=== PATIENT | male | born 1945 | race Caucasian/White ===

== ENCOUNTER 2017-08-16 09:49 | Day surgery (SDC) | payer OTHER ==
[~2017-08-16] VITALS: Ht 180.3 cm; Wt 95.9 kg
[~2017-08-16 09:49] MED LIST: ACYC200 PO; ASPI325 PO; Advil200 M1 PO; Aspirin EC81 MG PO; CHOL10002 PO; Cleocin HCl300 MG PO; Lopressor 25 mg25 MG; METO25ER PO; Norco 5-325 Ta1 EACH PO; PROBIOTIC; Synthroid25 MCG PO; VANCOMYCIN1.25 GM/25 IV
[2017-08-16] MEDS ORDERED: LOSA25 (10:49)
== END 2017-08-16 12:18 | disposition home or self-care (01) ==
LOC: ORSCSDS 09:49
PROVIDERS: Surgery
PROC: 0DJD8ZZ Inspection of Lower Intestinal Tract, Via Natural or Artificial Opening Endoscopic (ICD-10-PCS; principal; 2017-08-16 11:00)
DX: Z12.11 Encounter for screening for malignant neoplasm of colon (principal); Z86.010 Personal history of colon polyps; R00.2 Palpitations; E78.5 Hyperlipidemia, unspecified; I10 Essential (primary) hypertension; I73.9 Peripheral vascular disease, unspecified; Z87.891 Personal history of nicotine dependence; E66.9 Obesity, unspecified; Z68.30 Body mass index [BMI] 30.0-30.9, adult; Z79.82 Long term (current) use of aspirin; Z79.899 Other long term (current) drug therapy
CPT/HCPCS: J7120

== ENCOUNTER → 2019-05-06 | Outpatient (CLI) | payer OTHER ==
[~2019-05-06] MED LIST changes: +LOSA25
== END | disposition home or self-care (01) ==
LOC: LAB SHORT 08:52 → PLD 08:52
DX: C03.1 Malignant neoplasm of lower gum (principal); K13.21 Leukoplakia of oral mucosa, including tongue; K14.8 Other diseases of tongue
CPT/HCPCS: 88305

== ENCOUNTER → 2020-06-23 | Outpatient (CLI) | payer OTHER ==
[~2020-06-23] MED LIST changes: +LIVALO2 MG PO
== END | disposition home or self-care (01) ==
LOC: LAB 08:23 → LAB SHORT 08:23
DX: D48.9 Neoplasm of uncertain behavior, unspecified (principal); L57.0 Actinic keratosis
CPT/HCPCS: 88305

== ENCOUNTER 2021-03-09 08:42 | Day surgery (SDC) | payer OTHER ==
[~2021-03-09] VITALS: Ht 180.3 cm; Wt 89.7 kg
== END 2021-03-09 12:43 | disposition home or self-care (01) ==
LOC: ORSCSDS 08:42
PROVIDERS: Otolaryngology
PROC: 0WB3XZX Excision of Oral Cavity and Throat, External Approach, Diagnostic (ICD-10-PCS; principal; 2021-03-09 11:00)
DX: K13.21 Leukoplakia of oral mucosa, including tongue (principal); I10 Essential (primary) hypertension; I25.2 Old myocardial infarction; G47.33 Obstructive sleep apnea (adult) (pediatric); E03.9 Hypothyroidism, unspecified; Z79.899 Other long term (current) drug therapy; Z79.82 Long term (current) use of aspirin
CPT/HCPCS: 88305; J1100; J2250; J2405; J2704; J3010; J7120

== ENCOUNTER 2021-10-24 08:25 | Day surgery (SDC) | payer OTHER ==
[~2021-10-24] VITALS: Ht 177.8 cm; Wt 91.9 kg
--- NOTE | 2021-10-24 11:43 | NUR ---
10/24/21 1143 KRYSTA HERNANDEZ CHECKED OPERATIVE SITE, REDDISH PINK AREA UNDER LIP, NO ACTIVE BLEEDING OR PAIN NOTED
== END 2021-10-24 12:15 | disposition home or self-care (01) ==
LOC: ORSCSDS 08:25
PROVIDERS: Otolaryngology
PROC: 0C5 Mouth and Throat, Destruction (ICD-10-PCS; principal; 2021-10-24 10:30)
PROC: 0C5 Mouth and Throat, Destruction (ICD-10-PCS; principal; 2021-10-24 10:30)
DX: K13.21 Leukoplakia of oral mucosa, including tongue (principal); I10 Essential (primary) hypertension; Z87.891 Personal history of nicotine dependence; E03.9 Hypothyroidism, unspecified; Z79.899 Other long term (current) drug therapy; Z79.82 Long term (current) use of aspirin
CPT/HCPCS: J0171; J1100; J2250; J2405; J2704; J3010; J7120

== ENCOUNTER 2023-02-05 18:54 | Inpatient (IN) | payer OTHER ==
[~2023-02-05] VITALS: Ht 180.3 cm; Wt 83.7 kg
[2023-02-05 22:00] LABS: BASOPHILS ABSOLUTE AUTO 0.04 K/mm3 (0.00-0.23); BASOPHILS PERCENT AUTO 0 % (0-2); EOSINOPHILS ABSOLUTE AUTO 0.27 K/mm3 (0.00-0.68); EOSINOPHILS PERCENT AUTO 2 % (0-6); Hematocrit 34.7 % (37.0-53.0); Hemoglobin 11.5 g/dL (13.5-17.5); IMMATURE GRAN ABSOLUTE AUTO 0.06 K/mm3 (0.00-0.10); IMMATURE GRAN PERCENT AUTO 0 % (0-1); LYMPHOCYTES ABSOLUTE AUTO 2.34 K/mm3 (0.84-5.20); LYMPHOCYTES PERCENT AUTO 18 % (21-46); MONOCYTES ABSOLUTE AUTO 1.29 K/mm3 (0.16-1.47); MONOCYTES PERCENT AUTO 10 % (4-13); Mean Corpuscular HGB 31.6 pg (26.0-34.0); Mean Corpuscular HGB Conc 33.1 g/dL (31.5-36.5); Mean Corpuscular Volume 95 fL (80-100); Mean Platelet Volume 9.9 fL (9.1-12.4); NEUTROPHILS ABSOLUTE AUTO 9.36 K/mm3 (1.96-9.15); NEUTROPHILS PERCENT AUTO 70 % (41-73); Platelet Count 248 K/mm3 (150-400); RDW Coefficient Variation 13.9 % (11.7-14.2); RDW Standard Deviation 48.9 fL (35.1-46.3); Red Blood Cell Count 3.64 M/mm3 (4.30-5.90); White Blood Cell Count 13.36 K/mm3 (4.00-11.30)
[2023-02-05 22:17] LABS: International Normalized Ratio 1.14; Prothrombin Time Results 11.9 Sec (9.7-11.5)
[2023-02-05 22:24] LABS: Bun/Creatinine Ratio 32.3 (12.0-20.0); Calcium, Blood 9.6 mg/dL (8.5-10.1); Creatinine, Blood 0.96 mg/dL (0.60-1.20); Potassium, Blood 3.9 mmol/L (3.5-5.5)
[2023-02-05 22:35] LABS: Anti-Xa UFH, PHA Monitoring <0.10 IU/mL
[2023-02-06] VITALS (10 sets, daily range): BP systolic 109–143; BP diastolic 63–104
[2023-02-06] MEDS ORDERED: ASPI81CH PO (00:19)
[2023-02-06] MEDS ORDERED: ATOR40TA PO (00:19)
--- NOTE | 2023-02-06 05:52 | NUR ---
SHIFT SUMMARY/ARRIVAL TO PCU NOTE: RECEIVED REPORT FROM PRODUCT SAFETY TECHNICIAN ZORAN ARCOS, PT SHORTLY ARIRVED TO PCU 2 ~0125 THIS AM. SLIDE FROM ER KRISTINA TO PCU BED VIA SLIDE SHEET, HEPARIN gtt STARTED IN ED AND RUNNING WHEN PT ARRIVED WITH HIS SPOUSE. A/Ox4 AND COOPERATIVE WITH CARE. ANSWERS QUESTIONS APPROPRIATELY AND ABLE TO MAKE HIS NEEDS KNOWN. VERY CHITINA W/O HIS HEARING AIDES, BUT ABLE TO READ LIPS WELL. CARDIAC, TELEMETRY DEMONSTRATES SR-ST 80-100'S C/O UPPER CP WITH DEEP INHALATION. SBP REMAINS STABLE RANGING 120-130'S. RESPIRATORY, MAINTAINS SPO2 >92% ON RA, REPORTS SOB WITH EXERTION, DRY INTERMITTENT COUGH NOTED. LS VERY DIMINISHED T/O. GI,, ABLE TO INDPENDENTLY USE URINAL AT BEDSIDE. WALKS WITH CANE AT BASELINE, BUT RECENTLY REPORTS ISSUES WITH GAIT DUE TO RLE SWELLING/PAIN. RLE SWOLLEN, RED, AND WARM TO THE TOUCH. PEDAL PULSES PRESENT BILAT. DR. DAMON CONSULTED THIS MORNING FOR POSSIBLE PROCEDURE. HEPARIN gtt HAS BEEN RUNNING ORDERED VIA EMAR. REPORTS MINIMAL DULL PAIN ON RLE. ASSESSED PT FOR RISKS OF ANY IGNITION SOURCES WELL BEHAVIORS FOR INCREASED RISKS OF FIRE DANGER. PT EDUCATED ON COMMON SOURCES OF IGNITION WELL NEED TO KEEP A SAFE ENVIRONMENT. PT VOICED UNDERSTANDING. NO NEW ORDERS AT THIS TIME, WILL REPORT TO ONCOMING RN. YONIS YATES OF THIS NOTE.
[2023-02-06] MEDS ORDERED: METO25 PO (08:45)
[2023-02-06 10:11] LABS: Albumin, Blood 2.8 g/dL (3.4-5.0); Albumin/Globulin Ratio 0.7 (0.8-1.8); Bilirubin, Total 0.7 mg/dL (0.1-1.0); Bun/Creatinine Ratio 27.1 (12.0-20.0); Calcium, Blood 8.9 mg/dL (8.5-10.1); Globulin, Blood 4.3 g/dL (2.2-4.0); Potassium, Blood 3.7 mmol/L (3.5-5.5); Total Protein, Blood 7.1 g/dL (6.4-8.2)
[2023-02-06 10:34] LABS: BASOPHILS ABSOLUTE AUTO 0.03 K/mm3 (0.00-0.23); BASOPHILS PERCENT AUTO 0 % (0-2); EOSINOPHILS ABSOLUTE AUTO 0.14 K/mm3 (0.00-0.68); EOSINOPHILS PERCENT AUTO 2 % (0-6); Hematocrit 30.7 % (37.0-53.0); Hemoglobin 10.2 g/dL (13.5-17.5); IMMATURE GRAN ABSOLUTE AUTO 0.07 K/mm3 (0.00-0.10); IMMATURE GRAN PERCENT AUTO 1 % (0-1); LYMPHOCYTES ABSOLUTE AUTO 1.09 K/mm3 (0.84-5.20); LYMPHOCYTES PERCENT AUTO 11 % (21-46); MONOCYTES ABSOLUTE AUTO 0.76 K/mm3 (0.16-1.47); MONOCYTES PERCENT AUTO 8 % (4-13); Mean Corpuscular HGB 31.4 pg (26.0-34.0); Mean Corpuscular HGB Conc 33.2 g/dL (31.5-36.5); Mean Corpuscular Volume 95 fL (80-100); Mean Platelet Volume 10.4 fL (9.1-12.4); NEUTROPHILS ABSOLUTE AUTO 7.47 K/mm3 (1.96-9.15); NEUTROPHILS PERCENT AUTO 78 % (41-73); Platelet Count 85 K/mm3 (150-400); RDW Coefficient Variation 13.7 % (11.7-14.2); RDW Standard Deviation 47.8 fL (35.1-46.3); Red Blood Cell Count 3.25 M/mm3 (4.30-5.90); White Blood Cell Count 9.56 K/mm3 (4.00-11.30)
--- NOTE | 2023-02-06 18:16 | NUR ---
SHIFT SUMMARY; ASSUMED CARE AT 0700. A/A/OX4. COOPERATIVE WITH CARE. SBA ASSIST IN ROOM. AMBULATES TO RESTROOM WITH FWW. HEPARIN DC'D TODAY AT NOON. THROMBECTOMY IN AFTERNOON, RETURNED TO ROOM AT 1630. PURSE STRING CLOSURE IN PLACE BEHIND RIGHT KNEE. NO SWELLING OR BLEEDING NOTED, CP REFILL <3 ON RIGHT FOOT, PEDAL PULSE MARKED AND PALPABLE. VSS, DINNER TRAY PROVIDED. WILL CONTINUE TO MONITOR AND TREAT UNTIL CHANGE OF SHIFT.
[2023-02-07 03:18] VITALS: BP 136/81
[2023-02-07 04:18] LABS: Hematocrit 29.9 % (37.0-53.0); Hemoglobin 9.9 g/dL (13.5-17.5); Mean Corpuscular HGB 31.2 pg (26.0-34.0); Mean Corpuscular HGB Conc 33.1 g/dL (31.5-36.5); Mean Corpuscular Volume 94 fL (80-100); Mean Platelet Volume 10.5 fL (9.1-12.4); Platelet Count 92 K/mm3 (150-400); RDW Coefficient Variation 13.7 % (11.7-14.2); RDW Standard Deviation 48.3 fL (35.1-46.3); Red Blood Cell Count 3.17 M/mm3 (4.30-5.90); White Blood Cell Count 7.14 K/mm3 (4.00-11.30)
[2023-02-07 04:54] LABS: Bun/Creatinine Ratio 26.5 (12.0-20.0); Calcium, Blood 8.9 mg/dL (8.5-10.1); Creatinine, Blood 0.9 mg/dL (0.60-1.20); Potassium, Blood 3.6 mmol/L (3.5-5.5)
--- NOTE | 2023-02-07 05:04 | NUR ---
SHIFT SUMMARY A/Ox2-3 AND IS COOPERATIVE WITH CARE. INTERMITTENT PROBLEMS WITH SHORT MEMORY NOTED. KNOWS HIS AND HIS SPOUSE S NAME BUT CONTINUES TO THINK HE IS AT A HOSPITAL IN [place], THE MONTH IS APRIL, AND HE COULDN T REMEMBER WHY HE WAS HERE. AFTER SOME REORIENTATION, PT EVENTUALLY REMEMBERED ABOUT HIS DVT/PE'S WELL THE PROCEDURE HE UNDERWENT YESTERDAY. CARDIAC, REMAINS IN SR 70-90'S T/O THE SHIFT WITH NO REPORTS OF CP OR PRESSURE. SBP HAS BEEN STABLE RANGING 100-130'S. RESPIRATORY, MAINTAINS SPO2 >92% ON RA. REPORTS SOB/FATIGUE WITH EXERTION. LS CONTINUE TO BE DIMINISHED ON LEFT SIDE. USED HIS CPAP WHENEVER HE WAS ASLEEP. GI/, ABLE TO AMBULATE TO THE BATHROOM WITH 1 STAFF ASSIST WELL FWW. NO BM FOR ME THIS SHIFT. PT S RLE COLOR/SWELLING HAVE IMPROVED SINCE YESTERDAY. PEDIAL PULSES PRESENT AND STRONG BILAT. DENIES ANY TINGLING OR SENSATION LOSS IN HIS LEGS/FEET. ACCESS SITE REMAINS FREE OF ANY OOZING OR HEMATOMA. ASSESSED PT FOR RISKS OF ANY IGNITION SOURCES WELL BEHAVIORS FOR INCREASED RISKS OF FIRE DANGER. PT EDUCATED ON COMMON SOURCES OF IGNITION WELL NEED TO KEEP A SAFE ENVIRONMENT. PT VOICED UNDERSTANDING. NO NEW ORDERS AT THIS TIME, WILL REPORT TO ONCOMING RN. YONIS YATES OF THIS NOTE.
[2023-02-07 07:28] VITALS: BP 115/75
[2023-02-07] MEDS ORDERED: AMOCLA875 PO (10:07)
[2023-02-07] MEDS ORDERED: ELIQUIS5 M2 PO (10:08)
[2023-02-07 11:34] VITALS: BP 117/72
--- NOTE | 2023-02-07 12:54 | NUR ---
DISCHARGE UPDATE DISCHARGE PACKET GONE OVER WITH PT AND PT AT 1235. PT DISCHARGED AT 1245 VIA WHEELCHAIR AND ON RA. PT ABLE TO TRANSFER SELF TO AND FROM WHEELCHAIR ON HIS OWN, TOLERATED WELL. DISCHARGE PACKET WITH PT AT TIME OF DISCHARGE. PT PERSONAL BELONGINGS AND CPAP WITH PT AT TIME OF DISCHARGE.
[2023-02-20] MEDS ORDERED: CLOP75 PO (13:10)
[2023-02-20] MEDS ORDERED: ELIQUIS5 M2 PO (13:10)
[2023-02-20] MEDS ORDERED: Amiodarone HCl200 MG (13:10)
[2023-02-20] MEDS ORDERED: ACET500 PO (13:11)
[2023-02-20] MEDS ORDERED: LASIX20 M2 PO (13:11)
[2023-02-21] MEDS ORDERED: Aspir 8181 MG PO (07:35)
[2023-02-21] MEDS ORDERED: XARELTO20 MG PO (10:07)
== END 2023-02-07 12:45 | disposition home or self-care (01) | DRG 270 ==
LOC: ER 18:54 → PCU 02-06 00:13
PROVIDERS: Emergency Medicine; Internal Medicine; ADMIT Internal Medicine
PROC: 04CH3ZZ Extirpation of Matter from Right External Iliac Artery, Percutaneous Approach (ICD-10-PCS; principal; 2023-02-06)
PROC: 04CK3ZZ Extirpation of Matter from Right Femoral Artery, Percutaneous Approach (ICD-10-PCS; 2023-02-06)
PROC: 04CM3ZZ Extirpation of Matter from Right Popliteal Artery, Percutaneous Approach (ICD-10-PCS; 2023-02-06)
PROC: B5191ZZ Fluoroscopy of Inferior Vena Cava using Low Osmolar Contrast (ICD-10-PCS; 2023-02-06)
DX: I82.411 Acute embolism and thrombosis of right femoral vein (principal); I26.99 Other pulmonary embolism without acute cor pulmonale; I10 Essential (primary) hypertension; E78.5 Hyperlipidemia, unspecified; E03.9 Hypothyroidism, unspecified; G89.29 Other chronic pain; D69.6 Thrombocytopenia, unspecified; Z90.49 Acquired absence of other specified parts of digestive tract; Z90.89 Acquired absence of other organs; Z79.82 Long term (current) use of aspirin; Z79.890 Hormone replacement therapy; Z79.899 Other long term (current) drug therapy; Z95.2 Presence of prosthetic heart valve; Z95.1 Presence of aortocoronary bypass graft
CPT/HCPCS: 36415; 37187; 71260; 75820; 75825; 76937; 80048; 80053; 82947; 83880; 84484; 85025; 85027; 85520; 85610; 85730; 93306; 93971; 94660; 94762; 96365-59; 99152; 99153; 99285-25; A9270; C1757; C1769; C1887; C1894; J1644; J2060; J2250; J3010; J7030; J7050; Q9967